=== PATIENT | male | born 1955 ===

== ENCOUNTER 2024-02-29 08:33 | Outpatient (CLI) | payer MEDICARE, BC, SELFPAY ==
--- NOTE | 2024-03-12 08:50 | WPDSLEEPSTUD ---
Sleep Study Date of Study: 02/29/24 Ordering Provider: Jaylan Lobo, [employer] Interpreting Physician: Juliette Constantino MD Sleep Study Type: Polysomnogram Height: 1.75 m Weight: 86.183 kg Body Mass Index: 28.0 Neck Circumference (inches): 14.75 [place]: 13 Reason for Sleep Study Hypersomnolence Sleep History Jason Pedroza is a 68-year-old man with excessive nocturia. His urologist questioned him about getting up to use the bathroom at night. He has loud snoring. ?He occasionally snore snores, however frequently snores loudly enough that others complain. He rarely has trouble sleeping when he has a cold. He never has breathing problems at night observed by others. He never sweats excessively at night. He never notices his heart pounding or beating irregularly during the night. He occasionally falls asleep during the day. He occasionally falls asleep involuntarily, rarely falls asleep while driving. He never experiences loss of muscle tone with strong emotion. 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 He never feels paralyzed on waking or falling asleep. He never experiences vivid dreams upon waking or falling asleep. He never feels afraid of going to sleep. He rarely has nightmares. He rarely recalls his dreams. He frequently has thoughts racing through his mind. He rarely feels sad or depressed. He frequently feels anxiety. He rarely notices parts of his body jerk. He occasionally kicks during the night. He never feels crawling or aching feelings in his legs. He occasionally feels leg pain at night. He rarely has morning jaw pain, rarely grinds his teeth at night. He occasionally feels bothered by pain during the day, rarely awakened by pain during the night. He occasionally wakes up feeling stiff in the morning, and he occasionally wakes feeling sore or achy. He never awakens with pain in his neck, spine, or joints. Normal bedtime is 10:30 p.m., falling asleep within 10 minutes, waking 2 or more times at night, goes to the bathroom when he awakens. Wake time is 5:30 a.m.. He typically gets 7 hours of sleep per night. He does not take naps in the day however a short nap 10-15 minutes on occasion may be refreshing. He feels better in the morning compared to other times of day. Habits:??Tobacco: Never smoker Caffeine: 3 cups per day Alcohol: 1 or 2 on occasion Recreational substances: none [facility] Past Medical History Medical History (Updated 03/12/24 @ 10:17 by Juliette Constantino MD) Benign prostatic hyperplasia Gout Hearing loss Hyperlipidemia Surgical History Surgical History (Updated 03/12/24 @ 09:08 by Juliette Constantino MD) History of hand surgery S/P hip replacement Bilateral Social History Social History (Updated 03/12/24 @ 09:12 by Juliette Constantino MD) Smoking status: Never smoker Alcohol intake: current Alcohol use details: occasional use, 1-2 drinks when he drinks Substance use: never Medications Medications: Hand written medication list: Lipitor 10 mg a day Doxazosin 4 mg a day Allopurinol 1 daily for gout Sleep Procedure A full night polysomnogram using the [employer] multi-channel system recorded the standard physiologic parameters including EEG, EOG, submentalis EMG, anterior tibialis EMG, EKG, body position, nasal and oral airflow using nasal pressure sensor and thermistor. Respiratory parameters of chest and abdominal movements were recorded with Respiratory Inductance Plethysmography belts. Oxygen saturation was recorded by pulse oximetry. Video monitoring was also performed. Sleep stages, periodic limb movements, and EEG arousals were scored in 30 second epochs according to the criteria of the AASM Scoring Manual. The Apnea-Hypopnea Index was calculated using CMS guidelines for definition of hypopnea while scoring respiratory events. Sleep Architecture The total recording time was
[2024-03-12 08:53] VITALS: BMI 28.0
== END 2024-03-01 05:55 | disposition home or self-care (01) ==
LOC: ANHCSM 08:34
PROVIDERS: Visit Provider Nurse Practitioner Family
DX: G47.33 Obstructive sleep apnea (adult) (pediatric) (principal)
CPT/HCPCS: 95810

== ENCOUNTER 2024-03-26 08:24 | Outpatient (CLI) | payer MEDICARE, BC, SELFPAY ==
--- NOTE | 2024-04-17 16:10 | WPDSLEEPSTUD ---
Sleep Study Date of Study: 03/26/24 Ordering Provider: Jaylan Lobo, CARDIOPULMONARY SPECIALIST Interpreting Physician: Nia Silva, Sleep Study Type: BiPAP Titration Height: 1.7 m Weight: 86.183 kg Body Mass Index: 29.7 Neck Circumference (inches): 14.75 [place]: 13 Reason for Sleep Study Hypersomnolence Sleep History Jason Pedroza is a 68-year-old man with excessive nocturia. His urologist questioned him about getting up to use the bathroom at night. He has loud snoring. ?He occasionally snore snores, however frequently snores loudly enough that others complain. He rarely has trouble sleeping when he has a cold. He never has breathing problems at night observed by others. He never sweats excessively at night. He never notices his heart pounding or beating irregularly during the night. He occasionally falls asleep during the day. He occasionally falls asleep involuntarily, rarely falls asleep while driving. He never experiences loss of muscle tone with strong emotion. 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 He never feels paralyzed on waking or falling asleep. He never experiences vivid dreams upon waking or falling asleep. He never feels afraid of going to sleep. He rarely has nightmares. He rarely recalls his dreams. He frequently has thoughts racing through his mind. He rarely feels sad or depressed. He frequently feels anxiety. He rarely notices parts of his body jerk. He occasionally kicks during the night. He never feels crawling or aching feelings in his legs. He occasionally feels leg pain at night. He rarely has morning jaw pain, rarely grinds his teeth at night. He occasionally feels bothered by pain during the day, rarely awakened by pain during the night. He occasionally wakes up feeling stiff in the morning, and he occasionally wakes feeling sore or achy. He never awakens with pain in his neck, spine, or joints. Normal bedtime is 10:30 p.m., falling asleep within 10 minutes, waking 2 or more times at night, goes to the bathroom when he awakens. Wake time is 5:30 a.m.. He typically gets 7 hours of sleep per night. He does not take naps in the day however a short nap 10-15 minutes on occasion may be refreshing. He feels better in the morning compared to other times of day. Habits:??Tobacco: Never smoker Caffeine: 3 cups per day Alcohol: 1 or 2 on occasion Recreational substances: none [facility] Past Medical History Medical History Benign prostatic hyperplasia Gout Hearing loss Hyperlipidemia Surgical History Surgical History History of hand surgery S/P hip replacement Bilateral Social History Social History Smoking status: Never smoker Alcohol intake: current Alcohol use details: occasional use, 1-2 drinks when he drinks Substance use: never Sleep Procedure A full night polysomnogram using the [employer] multi-channel system recorded the standard physiologic parameters including EEG, EOG, submentalis EMG, anterior tibialis EMG, EKG, body position, nasal and oral airflow using PAP device flow signal.? Respiratory parameters of chest and abdominal movements were recorded with Respiratory Inductance Plethysmography belts. Oxygen saturation was recorded by pulse oximetry. Video monitoring was also performed. Sleep stages, periodic limb movements, and EEG arousals were scored in 30 second epochs according to the criteria of the AASM Scoring Manual. The Apnea-Hypopnea Index was calculated using CMS guidelines for definition of hypopnea with 4% O2 desaturations while scoring respiratory events. Sleep Architecture The total recording time was 469.1 minutes.? The total sleep time was 188.5 minutes. Sleep latency was 32.6 minutes. REM latency was
[2024-04-17 17:43] VITALS: BMI 29.7
== END 2024-03-27 06:26 | disposition home or self-care (01) ==
LOC: ANHCSM 08:26
PROVIDERS: Visit Provider Nurse Practitioner Family
DX: G47.33 Obstructive sleep apnea (adult) (pediatric) (principal)
CPT/HCPCS: 95811